=== PATIENT | male | born 2000 | race American Indian/Alaskan Native ===

== ENCOUNTER 2022-02-19 14:36 | Emergency (ER) | payer SELFPAY ==
[2022-02-19 15:47] VITALS: BP 122/58
[2022-02-19] MEDS ORDERED: AZITHROMYCIN 250 MG TAB PO ONE (16:40)
[2022-02-19] MEDS ORDERED: LIDOCAINE-MPF (1%) 10 MG/1 ML VIAL 5 ML INFILTRATI ONE (16:40)
--- NOTE | 2022-02-19 17:08 | Emergency Department Report ---
ED General Adult HPI - General Chief complaint: Urogenital-Male Stated complaint: BURN DURING URINATION Time Seen by Provider: 02/19/22 16:34 Source: patient Mode of arrival: Ambulatory Limitations: No Limitations - History of Present Illness Initial comments: 21-year-old male no significant past medical history reports to the ER with complaints of dysuria for a month and a half after having unprotected sex. Patient denies any discharge this time. Patient reports no acute signs or symptoms at this moment. Patient is here for STD prophylaxis treatment. Severity scale (0 -10): 2 - Related Data Previous Rx's Medication Instructions Recorded Last Taken Type Doxycycline Hyclate 100 mg PO BID 7 Days #14 cap 02/19/22 Unknown Rx Allergies Allergy/AdvReac Type Severity Reaction Status Date / Time No Known Allergies Allergy Verified 02/19/22 15:48 ED Review of Systems ROS: Stated complaint: BURN DURING URINATION Other details as noted in HPI Comment: All other systems reviewed and negative Genitourinary: dysuria. denies: discharge ED Past Medical Hx - Past Medical History Previous Medical History?: No - Surgical History Past Surgical History?: No - Medications Home Medications: Home Medications Medication Instructions Recorded Confirmed Last Taken Type Doxycycline Hyclate 100 mg PO BID 7 Days #14 cap 02/19/22 Unknown Rx ED Physical Exam - General Limitations: No Limitations General appearance: alert, in no apparent distress - Head Head exam: Present: atraumatic, normocephalic - Eye Eye exam: Present: normal appearance - ENT ENT exam: Present: mucous membranes moist - Neck Neck exam: Present: normal inspection - Respiratory Respiratory exam: Present: normal lung sounds bilaterally. Absent: respiratory distress - Cardiovascular Cardiovascular Exam: Present: regular rate, normal rhythm. Absent: systolic murmur, diastolic murmur, rubs, gallop - GI/Abdominal GI/Abdominal exam: Present: soft, normal bowel sounds - Rectal Rectal exam: Present: deferred - Extremities Exam Extremities exam: Present: normal inspection - Back Exam Back exam: Present: normal inspection - Neurological Exam Neurological exam: Present: alert, oriented X3 - Psychiatric Psychiatric exam: Present: normal affect, normal mood - Skin Skin exam: Present: warm, dry, intact, normal color. Absent: rash ED Course Vital Signs 02/19/22 15:44 Temperature 98 F Pulse Rate 47 L Respiratory 16 Rate Blood Pressure 122/58 [Right] O2 Sat by Pulse 98 Oximetry ED Medical Decision Making - Medical Decision Making 21-year-old male no significant past medical history reports to the ER with complaints of dysuria for a month and a half after having unprotected sex. Patient denies any discharge this time. Patient reports no acute signs or symptoms at this moment. Patient is here for STD prophylaxis treatment. No acute findings noted on physical exam. Patient received 1 g of azithromycin p.o. and then 500 mg of Rocephin IM. Patient also sent home with doxycycline 100 mg twice daily for 7 days. Patient agrees with plan of care and verbalized understanding. Patient informed to follow his primary care provider as well as his local [facility] department as needed for further testing. Patient informed about having safe sex. Patient stable for discharge home no further work-up is needed. Vital Signs 02/19/22 15:44 Temperature 98 F Pulse Rate 47 L Respiratory 16 Rate Blood Pressure 122/58 [Right] O2 Sat by Pulse 98 Oximetry Critical care attestation.: If time is entered above; I have spent that time in minutes in the direct care of this critically ill patient, excluding procedure time. ED Disposition Clinical Impression: Dysuria, Possible exposure to STD Disposition: HOME / SELF CARE / HOMELESS Is pt being admited?: No Condition: Stable Instructions: Dysuria, Safe Sex Prescriptions: Doxycycline Hyclate 100 mg PO BID 7 Days #14 cap Referrals: RIGOBERTO CORDERO MD [Primary Care Provider] - 3-5 Days
== END 2022-02-19 17:08 | disposition home or self-care (01) ==
LOC: ED 14:36
DX: R30.0 Dysuria (principal); Z20.2 Contact with and (suspected) exposure to infections with a predominantly sexual mode of transmission; Z79.899 Other long term (current) drug therapy
CPT/HCPCS: 96372; 99282; J0696; J3490